=== PATIENT | male | born 1950 | race Caucasian/White ===

== ENCOUNTER 2017-11-21 06:15 | Inpatient (IN) ==
[~2017-11-21 06:15] MED LIST: DEXAMETHASONE 4 MG/1 ML VIAL IV ONE
[2017-11-21] MEDS ORDERED: OXYMETAZOLINE 0.05% NASAL SPRAY 15 ML BOTTLE ONE (06:25)
[2017-11-21] MEDS ORDERED: LIDOCAINE 2%/EPI 20 ML VIAL ONE (06:25)
[2017-11-21] MEDS ORDERED: MUPIROCIN 2% OINT 22 GM TUBE TOP ONE (06:25)
[2017-11-21] MEDS ORDERED: DIAZEPAM 5 MG TABLET PO STA (07:17)
[2017-11-21] MEDS ORDERED: DIAZEPAM 5 MG TABLET ONE (07:51)
[2017-11-21] MEDS: LACTATED RINGERS 1,000 ML IV SCH ×2 (07:56→14:45)
[2017-11-21 08:00] LABS: Basophils % 0.3 % (0.0-0.8); Eosinophils # 0.2 10*3/uL (0.0-0.87); Eosinophils % 2.9 % (0.00-10.9); Hematocrit 44.4 VOL% (42.0-52.0); Hemoglobin 14.7 GM/DL (14.0-18.0); Immature Granulocytes % 0.5 %; Immature Granulocytes Absolute 0.04 #; Lymphocytes # 1.3 10*3/uL (1.4-4.0); Lymphocytes % 17.8 % (21.2-54.2); Mean Corpuscular HGB Conc 33.1 GM/DL (32-36); Mean Corpuscular Hemoglobin 28 PG (27-34); Mean Corpuscular Volume 84.7 FL (87-102); Mean Platelet Volume 9.7 FL (9.6-12.0); Monocytes # 0.6 10*3/uL (0.11-0.8); Monocytes % 8.5 % (1.7-12.7); Neutrophils # 5.1 10*3/uL (1.4-7.4); Platelet Count 198 T/CUMM (130-400); Red Blood Count 5.24 MC/CUMM (3.8-5.5); White Blood Count 7.3 T/CUMM (4-12)
[2017-11-21 08:24] LABS: Calcium 9.1 MG/DL (8.5-10.1); Osmolality,Calculated 282.5 MOS/KG (273-304); Potassium 4.7 MMOL/L (3.5-5.1)
[2017-11-21 12:09] LABS: Apearance,Urine CLEAR (Clear); Bilirubin,Urine Negative (Negative); Blood, Urine Negative (Negative); Glucose,Urine (UA) Negative (Negative); Ketones,Urine Negative (Negative); Mucus,Urine Occasional /LPF (Occasional); Nitrite,Urine Negative (Negative); Protein,Urine Negative; RBC,Urine <1 /HPF (0-4); Squamous Epithelial Cell,Urine Occasional /HPF (0-10); Urine Color Yellow (Yellow); Urine Specific Gravity 1.017 (1.001-1.035); Urine Urobilinogen < 2.0 EU/DL (0.2-1.0); WBC,Urine <1 /HPF (0-6)
[2017-11-21] MEDS ORDERED: cefTRIAXone 1,000 MG VIAL ONE (13:46)
[2017-11-21] MEDS ORDERED: ACETAMINOPHEN 500 MG TABLET PO PRN (13:59)
[2017-11-21] MEDS ORDERED: diphenhydrAMINE 50 MG/1 ML VIAL IV PRN (13:59)
[2017-11-21] MEDS ORDERED: ONDANSETRON 4 MG/2 ML VIAL IV PRN (13:59)
[2017-11-21] MEDS ORDERED: HYDROmorphone PCA 30 MG/30 ML SYRINGE IV SCH (14:00)
[2017-11-21] MEDS ORDERED: IBUPROFEN 100 MG/5 ML UDCUP PO PRN (14:06)
[2017-11-21] MEDS ORDERED: PROPOFOL 200 MG/20 ML VIAL IV ONE (14:25)
[2017-11-21] MEDS ORDERED: MIDAZOLAM 2 MG/2 ML VIAL ONE (14:26)
[2017-11-21] MEDS ORDERED: SEVOFLURANE 1 UNIT/15 MINUTE INH ONE (14:26)
[2017-11-21] MEDS ORDERED: MINERAL OIL/PETROLATUM OPH OINT 3.5 GM TUBE ONE (14:26)
[2017-11-21] MEDS ORDERED: fentaNYL 100 MCG/2 ML VIAL ONE ×2 (14:26)
[2017-11-21] MEDS ORDERED: ONDANSETRON 4 MG/2 ML VIAL ONE (14:27)
[2017-11-21] MEDS ORDERED: PHENYLEPHRINE 10 MG/1 ML VIAL IV ONE (14:28)
[2017-11-21] MEDS ORDERED: GLYCOPYRROLATE 0.4 MG/2 ML VIAL ONE (14:28)
[2017-11-21] MEDS ORDERED: LACTATED RINGERS 2,000 ML IV ONE (14:28)
[2017-11-21] MEDS ORDERED: SODIUM CHLORIDE 0.9% 250 ML IV ONE (14:28)
[2017-11-21] MEDS ORDERED: DEXAMETHASONE 20 MG/5 ML VIAL ONE (14:28)
[2017-11-21] MEDS ORDERED: ACETAMINOPHEN 1,000 MG/100 ML VIAL IV ONE (14:28)
[2017-11-21] MEDS ORDERED: KETAMINE 500 MG/10 ML VIAL ONE (14:35)
[2017-11-21] MEDS ORDERED: MORPHINE PCA 30 MG/30 ML SYRINGE IV ONE (14:39)
[2017-11-21] MEDS ORDERED: NALOXONE 0.4 MG/ML VIAL IV PRN (14:40)
[2017-11-21] MEDS ORDERED: MORPHINE PCA 30 MG/30 ML SYRINGE IV SCH (15:00)
[2017-11-21] MEDS: CLINDAMYCIN 300 MG CAPSULE PO SCH ×2 (17:47→21:09)
[2017-11-21] MEDS ORDERED: CETIRIZINE 10 MG TABLET PO SCH (21:00)
[2017-11-21] MEDS ORDERED: SENNA 8.6 MG TABLET PO SCH (21:00)
[2017-11-21] MEDS ORDERED: NON-FORMULARY MEDICATION (Mirabegron [Myrbetriq] 50 MG) PO SCH (21:00)
[2017-11-21] MEDS ORDERED: MIRTAZAPINE 30 MG TABLET PO SCH (21:00)
[2017-11-21] MEDS: CHLORHEXIDINE 0.12% ORAL RINSE 60 ML BOTTLE SWISH/SPIT SCH (21:09)
[2017-11-21] MEDS: HYDROcod/ACETAMIN 7.5-325 MG/15 ML UDCUP PO PRN (21:09)
[2017-11-21] MEDS: DEXAMETHASONE 4 MG/1 ML VIAL IV SCH (23:26)
[2017-11-22] MEDS ORDERED: cefTRIAXone 1,000 MG in SYRINGE 1 EACH IV SCH (02:00)
[2017-11-22] MEDS: HYDROcod/ACETAMIN 7.5-325 MG/15 ML UDCUP PO PRN ×2 (02:17→08:43)
[2017-11-22] MEDS: LACTATED RINGERS 1,000 ML IV SCH ×4 (03:00→08:29)
[2017-11-22] MEDS: DEXAMETHASONE 4 MG/1 ML VIAL IV SCH (06:30)
[2017-11-22] MEDS ORDERED: LEVOTHYROXINE 150 MCG TABLET PO SCH (06:30)
[2017-11-22] MEDS: CHLORHEXIDINE 0.12% ORAL RINSE 60 ML BOTTLE SWISH/SPIT SCH (08:33)
[2017-11-22] MEDS: CLINDAMYCIN 300 MG CAPSULE PO SCH (08:33)
[2017-11-22] MEDS ORDERED: LISINOPRIL/HCTZ 10-12.5 MG TABLET PO SCH (09:00)
[2017-11-22] MEDS ORDERED: PANTOPRAZOLE 40 MG TABLET PO SCH (09:00)
[2017-11-22] MEDS ORDERED: LANSOPRAZOLE ODT 30 MG TABLET NG SCH (09:00)
[2017-11-22] MEDS ORDERED: ROSUVASTATIN 20 MG TABLET PO SCH (09:00)
[2017-11-22] MEDS ORDERED: METOPROLOL SUCCINATE XL 25 MG TABLET PO SCH (09:00)
[2017-11-22 12:35] VITALS: BP 143/72
== END 2017-11-22 13:52 | disposition home or self-care (01) | DRG 132 ==
LOC: N.OR 06:15 → N.SDSINP 06:31 → N.ICU 15:19 → N.SDSINP 11-22 09:06
PROVIDERS: ADMIT Otolaryngology; ATTEND Otolaryngology

== ENCOUNTER 2017-12-11 07:14 | Inpatient (IN) ==
[2017-12-11] MEDS ORDERED: ASPIRIN 325 MG TABLET PO STA (07:38)
[2017-12-11] MEDS ORDERED: MORPHINE 4 MG/1 ML VIAL IV PRN ×2 (07:38→10:59)
[2017-12-11] MEDS ORDERED: ONDANSETRON 4 MG/2 ML VIAL IV STA (07:38)
[2017-12-11] MEDS ORDERED: ONDANSETRON 4 MG/2 ML VIAL ONE (07:46)
[2017-12-11] MEDS ORDERED: ASPIRIN 325 MG TABLET ONE (07:46)
[2017-12-11 07:55] LABS: Basophils % 0.3 % (0.0-0.8); Eosinophils # 0.2 10*3/uL (0.0-0.87); Eosinophils % 2.6 % (0.00-10.9); Hematocrit 44.9 VOL% (42.0-52.0); Hemoglobin 14.9 GM/DL (14.0-18.0); Immature Granulocytes % 0.2 %; Immature Granulocytes Absolute 0.02 #; Lymphocytes # 1.3 10*3/uL (1.4-4.0); Lymphocytes % 14.1 % (21.2-54.2); Mean Corpuscular HGB Conc 33.2 GM/DL (32-36); Mean Corpuscular Hemoglobin 28 PG (27-34); Mean Corpuscular Volume 84.2 FL (87-102); Mean Platelet Volume 10.3 FL (9.6-12.0); Monocytes # 0.7 10*3/uL (0.11-0.8); Monocytes % 7.4 % (1.7-12.7); Neutrophils # 6.8 10*3/uL (1.4-7.4); Neutrophils % 75.4 % (38.7-73.9); Platelet Count 228 T/CUMM (130-400); Red Blood Count 5.33 MC/CUMM (3.8-5.5); Red Cell Distribution Width 16.6 % (9.3-17.3)
[2017-12-11 08:03] LABS: INR 1.1; PT Patient Result 11.3 SECS; Partial Thromboplastin Time 26.1 SECS (0-40)
[2017-12-11 08:26] LABS: Albumin 3.4 G/DL (3.4-5.0); Bilirubin,Total 0.5 MG/DL (0.2-1.0); Calcium 9.2 MG/DL (8.5-10.1); Osmolality,Calculated 279.4 MOS/KG (273-304); Potassium 3.5 MMOL/L (3.5-5.1); Total Protein 7.2 G/DL (6.4-8.3)
[2017-12-11] MEDS ORDERED: FAMOTIDINE 20 MG/2 ML VIAL IV STA (10:17)
[2017-12-11] MEDS ORDERED: FAMOTIDINE 20 MG/2 ML VIAL IV ONE (10:21)
[2017-12-11] MEDS ORDERED: ACETAMINOPHEN 325 MG TABLET PO PRN (10:59)
[2017-12-11] MEDS ORDERED: ONDANSETRON 4 MG/2 ML VIAL IV PRN (10:59)
[2017-12-11] MEDS ORDERED: SODIUM CHLORIDE 0.9% 1,000 ML IV SCH (11:00)
[2017-12-11 11:16] LABS: Apearance,Urine CLEAR (Clear); Bilirubin,Urine Negative (Negative); Blood, Urine Negative (Negative); Glucose,Urine (UA) Negative (Negative); Ketones,Urine 80 mg/dL (Negative); Mucus,Urine Occasional /LPF (Occasional); Nitrite,Urine Negative (Negative); Protein,Urine Negative; RBC,Urine 3 /HPF (0-4); Urine Color Yellow (Yellow); Urine Specific Gravity > 1.060 (1.001-1.035); WBC,Urine 1 /HPF (0-6)
[2017-12-11] MEDS ORDERED: ACETAMINOPHEN 325 MG TABLET ONE (15:52)
[2017-12-11 18:55] VITALS: BP 153/87
[2017-12-12] MEDS ORDERED: PANTOPRAZOLE 40 MG VIAL IV SCH (09:00)
== END 2017-12-11 20:41 | disposition left against medical advice (07) | DRG 313 ==
LOC: N.ED 07:14 → N.EDINP 11:56
PROVIDERS: ADMIT Internal Medicine Infectious Disease; ATTEND Internal Medicine Infectious Disease